=== PATIENT | female | born 1940 | race Caucasian/White ===

== ENCOUNTER 2019-07-08 18:34 | Inpatient (IN) | payer MEDICARE ==
[~2019-07-08] VITALS: Ht 160 cm; Wt 80.2 kg
[2019-07-08 19:50] LABS: BASOPHILS % (AUTO) 0.7 % (0.0-5.0); EOSINOPHILS % (AUTO) 1.8 % (0.0-8.0); HEMATOCRIT 46.6 % (36-48); LYMPHOCYTES % (AUTO) 28.1 % (21.0-51.0); MEAN CORPUSCULAR HEMOGLOBIN 29.9 pg (27.0-33.0); MEAN CORPUSCULAR HGB CONC 32.6 g/dL (32.0-36.0); MEAN CORPUSCULAR VOLUME 91.7 fL (79-99); MONOCYTES % (AUTO) 7.6 % (3.0-13.0); NEUTROPHILS % (AUTO) 61.6 % (40.0-77.0); PLATELET COUNT (AUTO) 270 K/uL (130-400); RED BLOOD CELL COUNT(AUTO) 5.08 MIL/uL (4.00-5.50); RED CELL DISTRIBUTION WIDTH 13.2 % (11.0-15.5); WHITE BLOOD COUNT (AUTO) 8.2 K/uL (4.8-10.8)
[2019-07-08 20:04] LABS: APPEARANCE,URINE SL CLOUDY (CLEAR); BILIRUBIN,URINE NEGATIVE (NEGATIVE); COLOR,URINE YELLOW (YELLOW); GLUCOSE, URINE (UA) NEGATIVE (NEGATIVE); KETONES,URINE NEGATIVE (NEGATIVE); LEUKOCYTE ESTERASE ,URINE TRACE (NEGATIVE); NITRATE,URINE POSITIVE (NEGATIVE); OCCULT BLOOD,URINE NEGATIVE (NEGATIVE); PROTEIN,URINE NEGATIVE (NEGATIVE); UROBILINOGEN,URINE 0.2 mg/dL (0.2-1.0)
[2019-07-08 20:05] LABS: CREATININE 1.1 mg/dL (0.5-1.5); POTASSIUM 4.1 mmol/L (3.5-5.1)
[2019-07-08 20:10] LABS: ALBUMIN 3.8 g/dL (3.5-5.0); BILIRUBIN,TOTAL 0.2 mg/dL (0.2-1.0)
[2019-07-08 20:20] LABS: BACTERIA,URINE Moderate /HPF (None Seen); RBC,URINE 0-1 /HPF (0-1)
[2019-07-08 20:21] LABS: SQUAMOUS EPITHELIAL CELL,UR Few /HPF (0-2)
[2019-07-08] MEDS ORDERED: IOHEXOL-350 75 ML VIAL IV ONE (22:48)
[2019-07-09] MEDS ORDERED: ONDANSETRON HCL 4 MG/2 ML VIAL IVP PRN (00:45)
[2019-07-09] MEDS ORDERED: ACETAMINOPHEN 325 MG TAB PO PRN (00:45)
[2019-07-09 02:31] VITALS: BP 147/73
[2019-07-09 06:06] LABS: HEMATOCRIT 42.7 % (36-48); MEAN CORPUSCULAR HEMOGLOBIN 30.4 pg (27.0-33.0); MEAN CORPUSCULAR HGB CONC 32.8 g/dL (32.0-36.0); MEAN CORPUSCULAR VOLUME 92.8 fL (79-99); RED BLOOD CELL COUNT(AUTO) 4.6 MIL/uL (4.00-5.50); RED CELL DISTRIBUTION WIDTH 13.1 % (11.0-15.5); WHITE BLOOD COUNT (AUTO) 8.2 K/uL (4.8-10.8)
[2019-07-09 06:31] LABS: CREATININE 0.9 mg/dL (0.5-1.5); MAGNESIUM 1.9 mg/dL (1.80-2.40)
[2019-07-09 06:41] LABS: HEMOGLOBIN A1C 5.9 % (4.0-6.0)
[2019-07-09 08:00] VITALS: BP 125/57
[2019-07-09] MEDS: METOPROLOL TARTRATE 25 MG TAB PO SCH ×2 (09:34→20:56)
[2019-07-09] MEDS: ASPIRIN 81MG TAB.CHEW PO SCH (09:34)
[2019-07-09 11:00] VITALS: BP 122/63
[2019-07-09 16:00] VITALS: BP 137/78
[2019-07-09] MEDS: CEFTRIAXONE SODIUM 1 GM IVP SCH (17:04)
[2019-07-09] MEDS: SODIUM CHLORIDE 0.9% 1000ML 1,000 ML IV SCH (17:05)
--- NOTE | 2019-07-09 17:48 | NUR ---
CM NOTE met with patient and states resides at home alone, resides in mobile home in senior living community and has many friends, independent with ambulation no dme. no services, [facility] dc plan is back to home at [place]. no dc needs. Addendum: 07/09/19 at 1752 by CINDY CLEMENS CM Amended: Links added.
[2019-07-09 19:43] VITALS: BP 118/76
[2019-07-09] MEDS: ATORVASTATIN CALCIUM 40 MG TABLET PO SCH (20:56)
[2019-07-10] VITALS (7 sets, daily range): BP systolic 114–145; BP diastolic 54–68
[2019-07-10] MEDS: SODIUM CHLORIDE 0.9% 1000ML 1,000 ML IV SCH ×2 (06:28→20:55)
[2019-07-10] MEDS: ASPIRIN 81MG TAB.CHEW PO SCH (08:36)
[2019-07-10] MEDS: METOPROLOL TARTRATE 25 MG TAB PO SCH ×2 (08:36→20:55)
[2019-07-10] MEDS ORDERED: GADODIAMIDE 10 MMOL/20 ML VIAL IV ONE (11:19)
[2019-07-10] MEDS: CEFTRIAXONE SODIUM 1 GM IVP SCH (16:52)
[2019-07-10] MEDS: ATORVASTATIN CALCIUM 40 MG TABLET PO SCH (20:55)
--- NOTE | 2019-07-10 20:55 | NUR ---
MEDS SHIFT ASSESSMENT DONE, PLEASE REFER TO CHART. DUE MEDS ADMINISTERED, TOLERATED WELL. KEPT RESTED AND COMFORTABLE. CALL LIGHT WITHIN REACH. WILL MONITOR PT. Addendum: 07/11/19 at 0536 by NARINDER BURCH RN RN Amended: Links added.
[2019-07-11] VITALS (7 sets, daily range): BP systolic 128–184; BP diastolic 72–99
--- NOTE | 2019-07-11 02:00 | NUR ---
ROUNDS PT RESTING WELL, FAIRLY ASLEEP. NO DISTRESS NOTED. KEPT RESTED AND COMFORTABLE. CALL LIGHT WITHIN REACH. WILL CONTINUE TO MONITOR.
--- NOTE | 2019-07-11 05:15 | NUR ---
SHOWER PT REQUESTED TO SHOWER. SALINE LOCKED IVF. PCP IN TO ASSIST PT. PT TOLERATED ACTIVITY WELL.
[2019-07-11] MEDS: METOPROLOL TARTRATE 25 MG TAB PO SCH ×2 (08:16→19:50)
[2019-07-11] MEDS: ASPIRIN 81MG TAB.CHEW PO SCH (08:17)
[2019-07-11] MEDS: SODIUM CHLORIDE 0.9% 1000ML 1,000 ML IV SCH ×2 (08:17→19:50)
--- NOTE | 2019-07-11 10:15 | NUR ---
NEUROLOGY DR. GREENFIELD IN TO SEE PATIENT. NO NEW ORDERS AT PRESENT.
[2019-07-11] MEDS: CEFTRIAXONE SODIUM 1 GM IVP SCH (16:28)
--- NOTE | 2019-07-11 19:12 | NUR ---
MD Lilliam MEEK IN TO SEE PT. INFORMED MD OF POSITIVE URINE CULTURE RESULTS AND 2DECHO RESULTS. NO ORDERS GIVEN AT THIS TIME. STATED PT IS FOR D/C PLAN IN AM.
[2019-07-11] MEDS: ATORVASTATIN CALCIUM 40 MG TABLET PO SCH (19:50)
--- NOTE | 2019-07-11 19:50 | NUR ---
MEDS SHIFT ASSESSMENT DONE, PLEASE REFER TO CHART. DUE MEDS ADMINISTERED, TOLERATED WELL. KEPT RESTED IN BED. ENCOURAGED TO REST AND SLEEP CALL LIGHT WITHIN REACH. WILL MONITOR PT. Addendum: 07/11/19 at 2205 by NARINDER BURCH RN RN Amended: Links added.
--- NOTE | 2019-07-11 22:00 | NUR ---
ROUNDS PT STILL AWAKE. NO DISTRESS NOTED. NO CONCERNS VERBALIZED. KEPT COMFORTABLE. ENCOURAGED TO REST AND SLEEP. WILL MONITOR PT.
--- NOTE | 2019-07-12 02:20 | NUR ---
ROUNDS PT FAIRLY ASLEEP WITH RESPIRATIONS EVEN AND UNLABORED. NO NOTED DISTRESS. KEPT UNDISTURBED FOR NOW. WILL MONITOR PT. CALL LIGHT WITHIN REACH.
[2019-07-12 04:00] VITALS: BP 122/85
--- NOTE | 2019-07-12 06:00 | NUR ---
ROUNDS PT RESTING WELL, NO CONCERNS VERBALIZED. NO DISTRESS NOTED. KEPT COMFORTABLE. FOR MORE CARE.
[2019-07-12 08:00] VITALS: BP 137/88
[2019-07-12] MEDS: METOPROLOL TARTRATE 25 MG TAB PO SCH ×2 (08:40→20:27)
[2019-07-12] MEDS: CLOPIDOGREL BISULFATE 75 MG TAB PO SCH (08:40)
[2019-07-12] MEDS: ASPIRIN 81MG TAB.CHEW PO SCH (08:40)
[2019-07-12 11:00] VITALS: BP 130/62
[2019-07-12] MEDS: CEFTRIAXONE SODIUM 1 GM IVP SCH (16:31)
[2019-07-12] MEDS: ATORVASTATIN CALCIUM 40 MG TABLET PO SCH (20:27)
[2019-07-12 21:17] VITALS: BP_SYST 101; BP_SYST 154; BP_DIAS 74; BP_DIAS 78
--- NOTE | 2019-07-12 23:12 | NUR ---
NOTE PATIENT AWAKE WATCHING TV. REPORTS THAT HEADACHE HAS NOT COME BACK. ALSO SAYS THAT IS NOT SEEING SPOTS ANY MORE LIKE EARLIER TODAY.
[2019-07-13 00:08] VITALS: BP 126/58
[2019-07-13 04:09] LABS: HEMATOCRIT 44.7 % (36-48); MEAN CORPUSCULAR HEMOGLOBIN 30.1 pg (27.0-33.0); MEAN CORPUSCULAR HGB CONC 32.9 g/dL (32.0-36.0); MEAN CORPUSCULAR VOLUME 91.4 fL (79-99); RED BLOOD CELL COUNT(AUTO) 4.89 MIL/uL (4.00-5.50); RED CELL DISTRIBUTION WIDTH 12.7 % (11.0-15.5); WHITE BLOOD COUNT (AUTO) 7.9 K/uL (4.8-10.8)
[2019-07-13 04:28] LABS: CREATININE 0.8 mg/dL (0.5-1.5); POTASSIUM 3.8 mmol/L (3.5-5.1)
[2019-07-13 05:14] VITALS: BP 125/59
[2019-07-13 08:00] VITALS: BP 129/73
[2019-07-13] MEDS: CLOPIDOGREL BISULFATE 75 MG TAB PO SCH (09:58)
[2019-07-13] MEDS: ASPIRIN 81MG TAB.CHEW PO SCH (09:58)
[2019-07-13] MEDS: METOPROLOL TARTRATE 25 MG TAB PO SCH (09:58)
--- NOTE | 2019-07-13 10:30 | NUR ---
MD ROUNDS DR. GREENFIELD ROUNDED AND SPOKE TO PATIENT REGARDING CT SCAN RESULTS. PER DR. GREENFIELD, PATIENT MAY BE DISCHARGED TODAY. RECOMMENDED FOR PATIENT TO FOLLOWUP WITH SLEEP MEDICINE PHYSICIAN FOR 2D ECHO RESULTS AND SUPERVISORY FORESTER FOR FLOATERS. PATIENT TO CONTINUE WITH ANTIPLATELET THERAPY AND STATIN THERAPY. PATIENT MADE AWARE AND VOICED UNDERSTANDING.
[2019-07-13 12:00] VITALS: BP 127/54
[2019-07-13 16:00] VITALS: BP 129/72
[2019-07-13] MEDS: CEFTRIAXONE SODIUM 1 GM IVP SCH (17:30)
--- NOTE | 2019-07-13 19:10 | NUR ---
DISCHARGE PATIENT GIVEN DISCHARGE INSTRUCTIONS VIA TEACH BACK. TELE REMOVED AND RETURNED TO TELEMETRY BY [facility]. PATIENT TO FOLLOW UP WITH DR. MEEK FOR REFERRAL FOR [employer] SUPERVISOR FOR POSSIBLE FLOATERS AND CARDIOLOGISTS FOR 2D ECHO RESULTS. PATIENT MY FOLLOW UP WITH DR. GREENFIELD IN 6 TO 8 WEEKS. RX GIVEN FOR ASA, PLAVIX, LOPRESSOR AND LIPITOR. PATIENT STABLE AT THIS TIME, WHEELED TO [facility] FOR DISCHARGE BY [facility] SHORT.
== END 2019-07-13 19:25 | disposition home or self-care (01) | DRG 65 ==
LOC: EDH 18:34 → EDHIP 23:59 → 3CH 07-09 01:55
PROVIDERS: ADMIT Internal Medicine; ATTEND Internal Medicine
DX: I63.9 Cerebral infarction, unspecified (principal); N39.0 Urinary tract infection, site not specified; G43.909 Migraine, unspecified, not intractable, without status migrainosus; I10 Essential (primary) hypertension
CPT/HCPCS: 36415; 70450; 70496; 70498; 70544; 70547; 70553; 80048; 80053; 80061; 81001; 83036; 83735; 85025; 85027; 87077; 87088; 87186; 93005; 93306; 93356; 97039; A9579; G0378; J0696; J7030; Q9967

== ENCOUNTER 2020-03-02 12:48 | Emergency (ER) | payer MEDICARE ==
[2020-03-02] MEDS ORDERED: KETOROLAC TROMETHAMINE 15MG/ML ONE (13:19)
[2020-03-02] MEDS ORDERED: HYDROCODONE/ACETAMINOPHEN 10/325 MG TAB ONE (13:19)
== END 2020-03-02 14:20 | disposition home or self-care (01) ==
LOC: EDH 12:48
DX: M25.561 Pain in right knee (principal); R10.9 Unspecified abdominal pain; M06.9 Rheumatoid arthritis, unspecified; E78.00 Pure hypercholesterolemia, unspecified; Z86.73 Personal history of transient ischemic attack (TIA), and cerebral infarction without residual deficits; Z87.891 Personal history of nicotine dependence
CPT/HCPCS: 73562; 96372; 99283; J1885